=== PATIENT | female | born 1955 | race Caucasian/White ===

== ENCOUNTER 2023-10-31 09:12 | Outpatient (AMB) | payer MEDICARE, SELFPAY ==
--- NOTE | 2023-10-31 10:33 | MHC.OFFWIV ---
Intake Vital Signs 10/31/23 10:49 Height 5 ft 5 in Weight 228 lb BMI 37.9 BP 136/88 Blood Pressure Location Rt brachial Position Sitting Pulse 85 Pulse Source Pulse Oximeter Temp 97.7 F Temp Source Oral Pulse Oximetry (%) 97 Oxygen Delivery Method Room Air Intake Visit Reasons: EST/cough([phone]) Intake Note: Pt is here c/o on going cough that is hurting her head after coughing so much. Pt states has felt like this for three days. Patient Tobacco Use Status: Never used Tobacco Allergies No Known Allergies Allergy (Verified 10/31/23 11:11) Medication List - Last Reconciled 10/31/23 by KLARISSA Chang albuterol sulfate 90 mcg/actuation 2 puffs inhalation Q6H PRN amlodipine-benazepril 10-20 mg 1 cap PO DAILY atorvastatin 40 mg PO DAILY benzonatate 200 mg PO BID PRN clopidogrel 75 mg PO DAILY [id number] carb-vit K 18 mg-400 mcg- 500 mg-50 mcg (Women's Multivitamin) tabs PO prednisone 20 mg PO BID Do you need a note to return to daycare/school/sports/work: No HPI HPI Comments History of Present Illness Details Patient is a 68-year-old female in today for a sick visit. Patient states that for the past couple of days she has developed symptoms of cough, headache, sore throat, chest congestion. She states that the cough is keeping her up at night and interrupting her sleep. She has used ukzd-smj-akqeyne medicine for cough including Robitussin with little relief. Patient denies sick contacts. Denies shortness of breath, chest pain, dizziness, numbness, nausea, vomiting, diarrhea. [facility] Social History Patient Tobacco Use Status: Never used Tobacco Review of Systems Const Details: Constitutional : No Weight loss, No Fever, No Chills, No Fatigue, No Malaise ENT/Mouth : Admits sore throat, No Rhinorrhea, No ear pain Eyes: No Eye Pain, No Swelling, No Redness Cardiovascular : No Chest Pain, No SOB, No Dyspnea on Exertion, No Orthopnea, No Edema, No Palpitations Respiratory : Admits Cough, No Sputum, No Wheezing Gastrointestinal : No Nausea, No Vomiting, No Diarrhea, No Constipation, No abdominal Pain, No Hematochezia, No Melena Genitourinary : No Dysuria, No Urinary Frequency, No Hematuria, Musculoskeletal : No joint pain, No Myalgias, No Joint Swelling Skin : No Skin Lesions, No rash Neuro : No Weakness, No Numbness, No Dizziness, No Headache Psych : No Anxiety/Panic, No Depression Heme/Lymph: No Bruising, No Bleeding,No Lymphadenopathy Endocrine : No Polyuria, No Polydipsia All other systems reviewed and are negative Physical Exam Vital Signs: Last Vital Signs Temp 97.7 F 10/31/23 10:49 Pulse 85 10/31/23 10:49 BP 136/88 10/31/23 10:49 Pulse Ox 97 10/31/23 10:49 Oxygen Delivery Method Room Air 10/31/23 10:49 BMI result Body Mass Index 37.9 Const Other: Appearance: Alert.? Oriented X3.? No acute distress.? Head: Normocephalic, atraumatic, no step-offs or deformities Eyes: Pupils equal, round and reactive to light.? ENT: Pharynx erythema.?TM intact and pearly jim. Neck: Normal inspection.? Neck supple.? CVS: Normal heart rate and rhythm.? Pulses normal.? Respiratory: No respiratory distress.? Slight expiratory wheeze upper lobes bilaterally. ? Neuro: Oriented X 3.? No motor deficit.? No sensory deficit. CN 2-12 intact Assessment & Plan Assessment & Plan (1) Upper respiratory infection: Comment: Patient will be given prednisone, benzonatate, albuterol, to be taken as directed. Patient has been educated on signs of worsening symptoms and when to report back to the walk-in or when to present to the ED. will call patient with swab results. Code(s): J06.9 - Acute upper respiratory infection, unspecified Qualifiers: URI type: unspecified URI Qualified Code(s): J06.9 - Acute upper respiratory infection, unspecified Plan: Take your medications as prescribed. If you were prescribed antibiotics today, it is important that you take your medication to their entirety, do not skip any doses, do not finish them early. Follow-up with your primary care provider this week. Return to the emergency department with new or worsening symptoms. Such as fevers, chills, chest pain, shortness of breath, nausea, vomiting, dizziness, headache, vision changes, lethargy In case of emergency call 911 Plan Follow-up with PCP. Coding Level of Care Code Est Pt Level 3 (52096) Diagnoses Upper respiratory tract infection, unspecified type J06.9 URI type: unspecified URI Time Spent (min) 21
[2023-10-31 10:49] VITALS: BP 136/88; PULSE 85; TEMP 36.5; O2SAT 97; BMI 37.9
== END 2023-10-31 11:33 | disposition home or self-care (01) ==
PROVIDERS: PCP Internal Medicine; Visit Provider Nurse Practitioner Primary Care
DX: J06.9 Acute upper respiratory infection, unspecified (principal)
CPT/HCPCS: 99213

== ENCOUNTER 2023-10-31 13:32 | Outpatient (REF) | payer MEDICARE, SELFPAY ==
[2023-10-31 15:01] LABS: Influenza A PCR NEGATIVE (Negative); Influenza B PCR NEGATIVE (Negative); Resp Syncy Virus RNA Qual PCR NEGATIVE (Negative); SARS COV2 PCR INHOUSE NEGATIVE (Negative)
== END 2023-10-31 13:33 | disposition home or self-care (01) ==
LOC: HO.HMGCLNP 13:32
PROVIDERS: Visit Provider Nurse Practitioner Primary Care
DX: Z11.52 Encounter for screening for COVID-19 (principal); J06.9 Acute upper respiratory infection, unspecified
CPT/HCPCS: 0241U

== ENCOUNTER 2025-04-16 14:23 | Outpatient (AMB) | payer MEDICARE, SELFPAY ==
--- OUTSIDE RECORDS SUMMARY | 2025-04-16 15:02 | XMS_ITS | Clinical Summary ---
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 Role Phone Edgar Funk Primary Care Provider [phone] Allergies No known active allergies Medications Doxycycline Hyclate 100 MG OR CAPS every other day Active ASPIRIN (PETRA ASPIRIN EC LOW DOSE) 81 MG OR TBEC 1 TABLET DAILY Active Amlodipine Besy-Benazepril HCl 5-10 MG OR CAPS 1 CAPSULE DAILY Active Simvastatin 40 MG OR TABS 1 TABLET AT BEDTIME Active BUPROPION HCL (BUDEPRION SR) 150 MG OR TB12 1 TABLET TWICE DAILY Active Social History Tobacco Use Types Packs/Day Years Used Date Smoking Tobacco: Never Comments:smoked as a teenage r Alcohol Use Standard Drinks/Week Comments Not Asked 0 (1 standard drink = 0.6 oz pur e alcohol) Comments No Sex and Gender Information Value Date Recorded Sex Assigned at Not on file Legal Sex Female 1:00 AM EDT Gender Identity Not on file Sexual Orientation Not on file Last Filed Vital Signs Vital Sign Reading Time Taken Comments Blood Pressure 124/84 11/03/2009 9:13 AM EST Pulse 68 11/03/2009 9:13 AM EST Temperature - - Respiratory Rate - - Oxygen Saturation - - Inhaled Oxygen Concentration - - Weight - - Height - - Body Mass Index - - Plan of Treatment Health Maintenance Due Date Last Done Comments Hepatitis C Screening 1955 DTaP/Tdap/Td (1 - Tdap) 1973 Mammogram/Breast Imaging 1995 Pneumococcal 50+ years (1 of 1 - PCV) 2005 Zoster (Shingrix) (1 of 2) 2005 Bone Density 2020 COVID-19 Vaccine ( - 2023-2 5 season) 2024 Influenza (#1) 2025 RSV (1 - 1-dose 75+ series) 2030 HPV Vaccine Aged Out No longer eligi ble based on patient's age to complete this topic Hep A Aged Out No longer eligi ble based on patient's age to complete this topic Hep B Aged Out No longer eligi ble based on patient's age to complete this topic Hib Aged Out No longer eligi ble based on patient's age to complete this topic Meningococcal ACWY Aged Out No longer eligible based on patient's age to complete this topic Pap Smear Discontinued Zoster (Zostavax) Discontinued Insurance [employer] FEE FOR SERVICE 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
--- NOTE | 2025-04-16 15:12 | AM.OFFWIN_ITS ---
Intake Vital Signs 04/16/25 15:13 Height 5 ft 5 in Weight 225 lb BMI 37.4 BP 106/80 Blood Pressure Location Lt brachial Position Sitting Pulse 82 Pulse Source Pulse Oximeter Temp 98.2 F Temp Source Oral Pulse Oximetry (%) 98 Oxygen Delivery Method Room Air Intake Visit Reasons: EP irritation on RT eye Intake Note: presents with right eye irritation with gritty feeling Patient Tobacco Use Status: Never used Tobacco Allergies No Known Allergies Allergy (Verified 04/16/25 15:13) Do you need a note to return to daycare/school/sports/work: No HPI HPI Comments History of Present Illness Details History of Present Illness - The patient is a 70-year-old female pr esenting with right eye redness and sensation of a foreign body. - Reports of redness and foreign body se nsation in the right eye, unresponsive to agtx-gjh-vbkzpzz drops. - Unable to consult her senior architect/design manager or primary care physician promptly. - No significant discharge, only slight watering, and no conjunctivitis symptoms. - Slight blurry vision with a predominan t sensation of a foreign body. - Current use of Visine drops without sy mptom relief; advised to use saline drops. - She denies eye pain, discharge or oliverio ting. - She denies photosensitivity. Physical Exam General: Cooperative, healthy appearing, comfortable, no acute distress and well developed Orientation: Patient oriented x3 Head: Normal to inspection Eyes: PERRLA bilaterally. Sclera is white with an area of swelling in on the medial aspect of the eye. Conjunctivae is pink. No FB noted, no discharge noted. Respiratory: Normal respiratory effort and able to speak in complete sentences. Clear to auscultation bilaterally Cardiovascular: Regular rate and rhythm. Normal S1 and S2 Patient was informed and verbally consented to the use of an ambient scribe for clinic note documentation during this visit. [facility] Social History Patient Tobacco Use Status: Never used Tobacco Review of Systems Const All systems reviewed & are unremarkable except as noted in HPI and below Physical Exam Vital Signs: Last Vital Signs Temp 98.2 F 04/16/25 15:13 Pulse 82 04/16/25 15:13 BP 106/80 04/16/25 15:13 Pulse Ox 98 04/16/25 15:13 Oxygen Delivery Method Room Air 04/16/25 15:13 BMI result Body Mass Index 37.4 Office Procedures Fluorescein eye exam Details: Fluorescein to the right eye, no FB or abrasion noted. Assessment & Plan Assessment & Plan (1) Chemosis of right conjunctiva: Code(s): H11.421 - Conjunctival edema, right eye Plan Most likely allergic reaction vs chemosis vs FB vs corneal abrasion Plan- - drops to the right eye daily - follow up with eye doctor Orders: Orders AMB Fluorescein eye exam Today S05.01XA - Injury of conjunctiva and corneal abrasion without foreign body, right eye, initial encounter Medications: New olopatadine 0.7% (Pataday Once Daily Relief) 1 drp ophthalmic (eye) Q24H PRN 5 mL 0RF itching Coding Level of Care Code Est Pt Level 3 (78844) Diagnoses Chemosis of right conjunctiva H11.421
[2025-04-16 15:13] VITALS: BP 106/80; PULSE 82; TEMP 36.8; O2SAT 98; BMI 37.4
== END 2025-04-16 15:51 | disposition home or self-care (01) ==
PROVIDERS: PCP Internal Medicine; Visit Provider Physician Assistant Medical
DX: H11.421 Conjunctival edema, right eye (principal)

== ENCOUNTER → 2025-04-16 14:23 | Outpatient (BNVA) | payer MEDICARE, SELFPAY | PROVIDERS: PCP Internal Medicine; Visit Provider Physician Assistant Medical | DX: H11.421 Conjunctival edema, right eye (principal) | CPT/HCPCS: 99212 ==